=== PATIENT | female | born 2000 | race Caucasian/White ===

== ENCOUNTER 2024-09-19 13:59 | Emergency (ER) | payer OTHER, SELFPAY ==
[2024-09-19 14:42] VITALS: BP 136/87; PULSE 56; RESP 16; TEMP 36.6; O2SAT 100; BMI 22.2
--- NOTE | 2024-09-19 15:29 | ED_ITS ---
HPI - Skin/Abscess/Foreign Bdy <Marielena Graham PA-C - Last Filed: 10/03/24 14:49> General Chief complaint: Skin/Abscess/Foreign Body Stated complaint: painful abcesses on labia Time Seen by Provider: 09/19/24 14:45 Source: patient Mode of arrival: Ambulatory History of Present Illness HPI narrative: 23-year-old female presents to the ED with chief complaint cysts on her labia over the last year. Patient also states that she was contacted by her doctor about needing a repeat Pap smear, since the Pap smear from last year had some abnormal results. Patient states that she believes she is HPV positive, is looking for some counseling on this condition. Patient does endorse a strong family history of cervical cancer. No abnormal vaginal bleeding. Patient states she has not currently sexually active. Related Data Allergies Allergy/AdvReac Type Severity Reaction Status Date / Time doxycycline Allergy Rash Verified 09/19/24 14:47 Review of Systems <Marielena Graham PA-C - Last Filed: 10/03/24 14:49> Constitutional Constitutional: Denies chills, Denies fatigue, Denies fever(s), Denies frequent falls, Denies lethargy and Denies weakness Eyes Eyes: Denies change in vision, Denies eye discharge, Denies irritation and Denies loss of vision ENT Ears, Nose, Mouth, and Throat: Denies change in voice, Denies dizziness, Denies neck pain, Denies sore throat and Denies throat swelling Cardiovascular Cardiovascular: Denies chest pain, Denies irregular heart rhythm, Denies lightheadedness, Denies palpitations, Denies dyspnea, Denies dyspnea on exertion and Denies orthopnea Respiratory Respiratory: Denies cough, Denies dyspnea, Denies dyspnea on exertion and Denies wheezing Gastrointestinal Gastrointestinal: Denies abdominal pain, Denies change in bowel habits, Denies diarrhea, Denies nausea and Denies vomiting Genitourinary Comments: Cysts on labia Musculoskeletal Musculoskeletal: Denies neck pain and Denies numbness Integumentary/Breasts Skin/Breast: Denies pruritus, Denies erythema, Denies rash and Denies wounds Neurologic Neurologic: Denies behavioral changes, Denies confusion, Denies dizziness, Denies frequent falls, Denies loss of vision, Denies numbness and Denies weakness Psychiatric Psychiatric: Denies anxiety, Denies behavioral changes, Denies confusion, Denies depression, Denies homicidal ideation and Denies suicidal ideation Endocrine Endocrine: Denies fatigue, Denies flushing and Denies palpitations Hematologic/Lymphatic Hematologic/Lymphatic: Denies easy bruising Allergic/Immunologic Allergic/Immunologic: Denies urticaria, Denies throat swelling and Denies wheezing Patient History <ANGELIC Jackson Last Filed: 10/03/24 14:49> Social History Smoking Status: Former smoker Smoking Status: Former smoker Substance Use Type: does not use Exam <ANGELIC Jackson Last Filed: 10/03/24 14:49> Narrative Exam Narrative: Const General:?cooperative, healthy appearing and comfortable [facility] Head:?normal to inspection Ears:?hearing grossly normal bilaterally Nose:?external nose normal Face and sinus:?normal facial exam and sinuses nontender Mouth:?oral mucosae normal Throat:?posterior oropharynx normal Eyes General:?appearance normal, both eyes and all related structures Neck Neck:?normal visual inspection and no lymphadenopathy noted Resp Effort & Inspection:?normal respiratory effort Auscultation:?clear to auscultation bilaterally Cardio Rate:?regular rate Rhythm:?regular rhythm There appeared to be a few lesions on the vulva most consistent with folliculitis/blocked pores. Neuro General:?patient alert, patient awake and patient oriented x3 Initial Vital Signs Initial Vital Signs: Vital Signs Temperature 98 F 09/19/24 14:42 Pulse Rate 56 L 09/19/24 14:42 Respiratory Rate 16 09/19/24 14:42 Blood Pressure 136/87 09/19/24 14:42 Pulse Oximetry 100 09/19/24 14:42 Oxygen Delivery Method Room Air 09/19/24 14:42 <Andreina Centeno DO - Last Filed: 10/04/24 19:43> Initial Vital Signs Initial Vital Signs: Vital Signs Temperature 98 F 09/19/24 14:42 Pulse Rate 56 L 09/19/24 14:42 Respiratory Rate 16 09/19/24 14:42 Blood Pressure 136/87 09/19/24 14:42 Pulse Oximetry 100 09/19/24 14:42 Oxygen Delivery Method Room Air 09/19/24 14:42 Course <ANGELIC Jackson Last Filed: 10/03/24 14:49> Orders Ordered: ED Orders 09/19/24 15:26 Test Urine Stat Urinalysis and Microscopic Stat Vital Signs Vital signs: Vital Signs - 8 hr 09/19/24 14:42 Temperature 98 F Pulse Rate 56 L Respiratory Rate 16 Blood Pressure 136/87 Pulse Oximetry 100 Oxygen Delivery Method Room Air <Andreina Centeno DO - Last Filed: 10/04/24 19:43> Orders Ordered: ED Orders 09/19/24 15:26 Test Urine Stat Urinalysis and Microscopic Stat Vital Signs Vital signs: Vital Signs - 8 hr 09/19/24 14:42 Temperature 98 F Pulse Rate 56 L Respiratory Rate 16 Blood Pressure 136/87 Pulse Oximetry 100 Oxygen Delivery Method Room Air MDM - Skin/Abscess/Foreign Bdy <Marielena Graham PA-C - Last Filed: 10/03/24 14:49> Lab Data Labs: Lab Results 09/19/24 Range/Units 15:29 Urine Color Yellow Urine Appearance Clear Urine pH 6.0 (4.5-8.0) Ur Specific [place] 1.010 (1.000-1.035) Urine Protein Negative (Negative) Urine Glucose (UA) Negative (Negative) g/dL Urine Ketones Negative (NEGATIVE) Urine Occult Blood Negative (Negative) Urine Nitrate Negative (Negative) Urine Bilirubin Negative (NEGATIVE) Urine Urobilinogen 0.2 (0.2) E.U./dL Ur Leukocyte Esterase Negative (NEGATIVE) Urine RBC None seen (0-5/HPF) Urine WBC None seen (0-5/HPF) Ur Squamous Epith Cells None seen (0-5/HPF) Urine Bacteria None seen (None) Ur Culture Indicated? Cult not indicated Vol Urine Centrifuged 10ml (spun) Urine Test Negative (Negative) MDM Narrative Medical decision making narrative: 23-year-old female presents to the ED with chief complaint cysts on her labia over the last year. Patient's presentation most consistent with folliculitis/blocked pores. Counseled patient on HPV. Patient agrees to follow-up with her PCP for a repeat Pap smear as scheduled currently. Also recommend follow-up with OBGYN for further evaluation. ED return precautions were discussed with patient. Patient verbalized understanding. Medical records reviewed: Yes <Andreina Centeno DO - Last Filed: 10/04/24 19:43> Lab Data Labs: Lab Results 09/19/24 Range/Units 15:29 Urine Color Yellow Urine Appearance Clear Urine pH 6.0 (4.5-8.0) Ur Specific [place] 1.010 (1.000-1.035) Urine Protein Negative (Negative) Urine Glucose (UA) Negative (Negative) g/dL Urine Ketones Negative (NEGATIVE) Urine Occult Blood Negative (Negative) Urine Nitrate Negative (Negative) Urine Bilirubin Negative (NEGATIVE) Urine Urobilinogen 0.2 (0.2) E.U./dL Ur Leukocyte Esterase Negative (NEGATIVE) Urine RBC None seen (0-5/HPF) Urine WBC None seen (0-5/HPF) Ur Squamous Epith Cells None seen (0-5/HPF) Urine Bacteria None seen (None) Ur Culture Indicated? Cult not indicated Vol Urine Centrifuged 10ml (spun) Urine Test Negative (Negative) Discharge Plan Departure Patient Disposition: Home Clinical Impression: Vulval lesion Instructions: Human Papillomavirus Testing Activity Restrictions/Additional Instructions: You were evaluated in the ED today for some vulvar lesions. It is unclear what the cause of these lesions are, although they can be folliculitis from blocked pores. It appears that you also had an abnormal Pap smear last year, are scheduled for a repeat Pap smear in 2 weeks. You are being provided some educational information on abnormal Pap smears and HPV. Please follow-up with your OBGYN as soon as possible for both the Pap testing as well as evaluation of the vulvar lesions. You may call [facility] at [phone] to make an appointment. Return to the ED if you have worsening symptoms. Referrals: Provider,Treva ZHANG [Primary Care Provider] - Stand Alone Forms: Patient Portal/API/Survey ED Sign-out <Andreina Centeno DO - Last Filed: 10/04/24 19:43> Cosign ED Attending Cosobduliaature Attestation: I was immediately available in the department for consultation.
[2024-09-19 15:41] LABS: Appearance Urine UA CLEAR; Bilirubin Urine UA NEGATIVE (NEGATIVE); Color Urine UA YELLOW; Glucose Urine UA NEGATIVE (Negative); Ketones Urine UA NEGATIVE (NEGATIVE); Leukocyte Esterase Urine UA NEGATIVE (NEGATIVE); Nitrite Urine UA NEGATIVE (Negative); Occult Blood Urine UA NEGATIVE (Negative); Protein Urine UA NEGATIVE (Negative); Urobilinogen Urine UA 0.2 E.U./dL (0.2)
[2024-09-19 15:45] LABS: Pregnancy Test Urine Negative (Negative)
[2024-09-19 15:52] LABS: Bacteria Urine None Seen; Culture Indicated Urine Cult Not Indicated; RBC Urine None Seen (0-5/HPF); Squamous Epithelial Cell Urine None Seen (0-5/HPF); Urine Volume 10mL (spun); WBC Urine None Seen (0-5/HPF)
[2024-09-19 16:07] VITALS: BP 140/78; PULSE 60; RESP 20; TEMP 36.4; O2SAT 100
== END 2024-09-19 16:08 | disposition home or self-care (01) ==
PROVIDERS: Emergency Provider Student in an Organized Health Care Education/Training Program
DX: N90.89 Other specified noninflammatory disorders of vulva and perineum (principal)
CPT/HCPCS: 81001; 81025; 99281; 99282